=== PATIENT | female | born 1935 | race Hispanic/Latino ===

== ENCOUNTER → 2018-05-20 | Outpatient (CLI) | payer MEDICARE | END | disposition home or self-care (01) | LOC: RAH 10:53 | PROVIDERS: ATTEND Internal Medicine | DX: R92.8 Other abnormal and inconclusive findings on diagnostic imaging of breast (principal); Z85.3 Personal history of malignant neoplasm of breast | CPT/HCPCS: 77066 ==

== ENCOUNTER → 2019-06-02 | Outpatient (CLI) | payer MEDICARE | END | disposition home or self-care (01) | LOC: RAH 09:33 | PROVIDERS: ATTEND Internal Medicine | DX: R92.1 Mammographic calcification found on diagnostic imaging of breast (principal) | CPT/HCPCS: 77066 ==

== ENCOUNTER → 2020-06-18 | Outpatient (CLI) | payer MEDICARE | END | disposition home or self-care (01) | LOC: RAH 08:11 | PROVIDERS: ATTEND Internal Medicine | DX: D05.12 Intraductal carcinoma in situ of left breast (principal); Z85.3 Personal history of malignant neoplasm of breast; R92.8 Other abnormal and inconclusive findings on diagnostic imaging of breast | CPT/HCPCS: 77066 ==

== ENCOUNTER → 2023-01-08 | Outpatient (CLI) | payer MEDICARE | END | disposition home or self-care (01) | LOC: RAH 09:17 | PROVIDERS: ATTEND Internal Medicine | DX: R92.2 Inconclusive mammogram (principal); D05.12 Intraductal carcinoma in situ of left breast; Z85.3 Personal history of malignant neoplasm of breast | CPT/HCPCS: 77066 ==

== ENCOUNTER → 2024-01-21 | Outpatient (CLI) | payer MEDICARE | END | disposition home or self-care (01) | LOC: RAH 08:56 | PROVIDERS: ATTEND Internal Medicine | DX: N63.41 Unspecified lump in right breast, subareolar (principal); N60.01 Solitary cyst of right breast; R92.323 Mammographic fibroglandular density, bilateral breasts; N60.02 Solitary cyst of left breast; Z85.3 Personal history of malignant neoplasm of breast | CPT/HCPCS: 77066 ==